=== PATIENT | female | born 1955 | race Caucasian/White ===

== ENCOUNTER 2016-09-28 15:47 | Emergency (ER) | payer MEDICAID ==
[~2016-09-28] VITALS: Ht 165.1 cm; Wt 122.5 kg
[2016-09-28 15:53] VITALS: BP 181/92; PULSE 62; RESP 16; TEMP 97.5; O2SAT 95
--- NOTE | 2016-09-28 17:29 | PD ---
HPI Chief Complaint: GI Complaint Time Seen by Provider: 17:28 Travel History International Travel<30 days: No Contact w/Intl Traveler<30days: No Traveled to known affect area: No History of Present Illness HPI 61-year-old female with a history of hypertension and atrial fibrillation presents to the emergency department for evaluation of diarrhea and abdominal pain for 3 days. Patient states that she drove to [place] from [place] to bring down her nephew's dog. States that the night that she got here she began to have diarrhea and lower abdominal cramping. States that she has continued to have multiple episodes of nonbloody diarrhea over the past 2 days as well as continued abdominal cramping. States that today she also had some weakness. Denies any fever, chills, nausea, vomiting, cough or cold symptoms, chest pain, shortness of breath, lightheadedness or dizziness. Prior abdominal surgeries include cholecystectomy and total hysterectomy. No other complaints. PFSH Past Medical History Cardiovascular Problems: Yes (STENT ) Social History Alcohol Use: No Tobacco Use: No Allergies-Medications (Allergen,Severity, Reaction): Coded Allergies: Bactrim (Verified Allergy, Severe, Dizziness, 09/28/16) Codeine (Verified Allergy, Severe, Hives, 09/28/16) Reported Meds & Prescriptions Reported Meds & Active Scripts Active Lortab (Hydrocodone-Acetaminophen) 5-325 Mg Tab 1 Tab PO Q6H PRN Reported Prilosec (Omeprazole) 20 Mg Cap 20 Mg PO DAILY Aspirin 81 Mg Tabdr 81 Mg PO DAILY Metoprolol Tartrate 25 Mg Tab 25 Mg PO BID Propafenone (Propafenone HCl) 150 Mg Tab 150 Mg PO DAILY Levothyroxine (Levothyroxine Sodium) 125 Mcg Tab 125 Mcg PO DAILY Review of Systems Except as stated in HPI: all other systems reviewed are Neg Physical Exam Narrative GENERAL: Well-nourished and well-developed pleasant female patient in no acute distress. SKIN: Warm and dry. HEAD: Normocephalic and atraumatic. EYES: No injection, drainage, or hyphema noted. PERRLA. EOMI. ENT: No nasal drainage noted. Oropharynx is clear. NECK: Supple and the trachea is midline. CARDIOVASCULAR: Regular rate and rhythm. RESPIRATORY: Breath sounds are equal bilaterally with no accessory muscle use, wheezing, rhonchi, or crackles. GASTROINTESTINAL: Mild left lower quadrant tenderness to palpation. No rebound tenderness or guarding. Abdomen is soft and nondistended. MUSCULOSKELETAL: No obvious deformities, swelling, cyanosis, or ecchymosis is present throughout the upper and lower extremities. Patient has full range of motion without any signs of neurovascular compromise. BACK: Negative CVA tenderness. NEUROLOGICAL: Awake, alert, and oriented. Normal speech and gait. Cranial nerves are grossly intact. Data Data Last Documented VS Vital Signs Date Time Temp Pulse Resp B/P Pulse Ox O2 Delivery O2 Flow Rate FiO2 09/28/16 15:53 97.5 62 16 181/92 95 Room Air Orders Complete Blood Count With Diff (09/28/16 16:45) Comprehensive Metabolic Panel (09/28/16 16:45) Urinalysis - C+S If Indicated (09/28/16 16:45) Lipase (09/28/16 16:45) Ct Abd/Pel W/O Iv Contrast (09/28/16 17:28) Dicyclomine Inj (Bentyl Inj) (09/28/16 17:30) Enteric Path (Stool) (09/28/16 17:55) C Diff Toxin Pcr (09/28/16 18:54) Acetamin-Hydrocod 325-5 Mg ([place] 5-325 (09/28/16 19:00) Labs Laboratory Tests Test 09/28/16 09/28/16 17:15 17:55 Urine Color DARK-YELLOW Urine Turbidity HAZY Urine pH 6.0 Urine Specific [place] 1.032 Urine Protein 100 mg/dL Urine Glucose (UA) NEG mg/dL Urine Ketones NEG mg/dL Urine Occult Blood NEG Urine Nitrite NEG Urine Bilirubin NEG Urine Urobilinogen 2.0 MG/DL Urine Leukocyte Esterase NEG Urine RBC 16 /hpf Urine WBC 2 /hpf Urine Squamous Epithelial 22 /hpf Cells Urine Mucus MANY /lpf Microscopic Urinalysis Comment CULT NOT INDICATED White Blood Count 12.2 TH/MM3 Red Blood Count 5.01 MIL/MM3 Hemoglobin 13.8 GM/DL Hematocrit 42.4 % Mean Corpuscular Volume 84.6 FL Mean Corpuscular Hemoglobin 27.6 PG Mean Corpuscular Hemoglobin 32.6 % Concent Red Cell Distribution Width 14.4 % Platelet Count 217 TH/MM3 Mean Platelet Volume 8.3 FL Neutrophils (%) (Auto) 67.0 % Lymphocytes (%) (Auto) 22.4 % Monocytes (%) (Auto) 7.3 % Eosinophils (%) (Auto) 2.1 % Basophils (%) (Auto) 1.2 % Neutrophils # (Auto) 8.2 TH/MM3 Lymphocytes # (Auto) 2.7 TH/MM3 Monocytes # (Auto) 0.9 TH/MM3 Eosinophils # (Auto) 0.3 TH/MM3 Basophils # (Auto) 0.1 TH/MM3 CBC Comment DIFF FINAL Differential Comment Sodium Level 137 MEQ/L Potassium Level 4.3 MEQ/L Chloride Level 104 MEQ/L Carbon Dioxide Level 28.5 MEQ/L Anion Gap 5 MEQ/L Blood Urea Nitrogen 13 MG/DL Creatinine 0.84 MG/DL Estimat Glomerular Filtration 69 ML/MIN Rate Random Glucose 93 MG/DL Calcium Level 8.9 MG/DL Total Bilirubin 0.4 MG/DL Aspartate Amino Transf 36 U/L (AST/SGOT) Alanine Aminotransferase 51 U/L (ALT/SGPT) Alkaline Phosphatase 75 U/L Total Protein 8.1 GM/DL Albumin 3.8 GM/DL Lipase 135 U/L MDM Medical Decision Making Medical Screen Exam Complete: Yes Emergency Medical Condition: Yes Differential Diagnosis Colitis versus gastroenteritis versus viral illness versus UTI versus electrolyte abnormality Narrative Course 61-year-old female presents to the emergency department for evaluation of diarrhea and lower abdominal pain. Patient is afebrile, vital signs are stable. She does have some mild left lower quadrant tenderness to palpation. Labs have been drawn and are sent. CT of the abdomen and pelvis without IV contrast has been ordered and is pending. Patient is given Bentyl 10 mg IM. CBC shows a slightly elevated white blood cell count of 12.2, otherwise unremarkable. CMP is unremarkable. Lipase is normal. Urinalysis shows 100 protein, 16 red blood cells and many mucus. No sign of urinary tract infection. CT of the abdomen and pelvis without IV contrast is unremarkable for any acute abnormalities. Stool culture and C. difficile toxin have been ordered and are pending. Patient reports that Bentyl did not improve her symptoms. We'll give her Lortab 5-325 mg orally for her pain. Otherwise patient has remained stable while here in the emergency department. Discussed results with the patient. This is likely abdominal pain of viral etiology however the stool culture is pending. Discussed supportive care and when to return to the emergency department. Advised her that we will call if there is any abnormality of her stool sample. Patient will be discharged with a prescription for Lortab. Advised to follow-up with her PCP. Patient verbalizes understanding and agreement with treatment plan. I discussed the case with my attending physician Dr. Beard who is aware of the patients history, physical examination findings, and treatment plan. Diagnosis Primary Impression: Abdominal pain Qualified Code: R10.30 - Lower abdominal pain Additional Impression: Diarrhea Qualified Code: A09 - Diarrhea of infectious origin Referrals: Primary Care Physician Patient Instructions: Abdominal Pain (ED), Acute Diarrhea (ED), General Instructions Additional Instructions: Drink plenty of fluids. Take medication as prescribed with food and a full glass of water. Do not take Lortab with alcohol or while driving. Follow-up with your Primary Care Physician. Return to the ED for any acute worsening of symptoms. Med/Other Pt SpecificInfo: Prescription(s) given Scripts Hydrocodone-Acetaminophen (Lortab)5-325 Mg Tab1 Tab PO Q6H PRN (PAIN) #15 TAB Ref 0 Prov:Yves Beard MD 09/28/16 Disposition: 01 DISCHARGE HOME Condition: Stable Chandni Parker Sep 28, 2016 17:29
[2016-09-28] MEDS ORDERED: DICYCLOMINE HCL 20 MG/2 ML VIAL IM ONE (17:30)
[2016-09-28] MEDS ORDERED: LEVO125T4 PO (17:33)
[2016-09-28] MEDS ORDERED: METO25TA3 PO (17:33)
[2016-09-28] MEDS ORDERED: ASPI1TAB69 PO (17:33)
[2016-09-28] MEDS ORDERED: PROP150T PO (17:33)
[2016-09-28] MEDS ORDERED: PRIL20CA9 PO (17:33)
[2016-09-28 18:11] LABS: AUTOMATED NEUTROPHIL # 8.2 TH/MM3 (1.8-7.7); BASOPHIL # 0.1 TH/MM3 (0-0.2); BASOPHIL % 1.2 % (0.0-2.0); EOSINOPHIL # 0.3 TH/MM3 (0-0.4); EOSINOPHIL % 2.1 % (0.0-4.0); HEMATOCRIT 42.4 % (35.0-46.0); HEMO FLAGS DIFF FINAL; LYMPH % 22.4 % (9.0-44.0); LYMPHOCYTE # 2.7 TH/MM3 (1.0-4.8); MEAN CELL VOLUME 84.6 FL (80.0-100.0); MEAN CORPUSCULAR HEMOGLOBIN 27.6 PG (27.0-34.0); MEAN CORPUSCULAR HGB CONC 32.6 % (32.0-36.0); MONO % 7.3 % (0.0-8.0); PLATELET COUNT 217 TH/MM3 (150-450); RED BLOOD COUNT 5.01 MIL/MM3 (4.00-5.30); RED CELL DISTRIBUTION WIDTH 14.4 % (11.6-17.2); WHITE BLOOD COUNT 12.2 TH/MM3 (4.0-11.0)
--- NOTE | 2016-09-28 18:17 | RADRPT ---
EXAM DATE/TIME: 09/28/2016 17:57 [facility] COMPARISON: No previous studies available for comparison. INDICATIONS : Diarrhea and abdominal cramping. ORAL CONTRAST: No oral contrast ingested. RADIATION DOSE: 25.49 CTDIvol (mGy) MEDICAL HISTORY : Hypertension. Gastroesophageal reflux disease. SURGICAL HISTORY : Cholecystectomy. Hysterectomy. ENCOUNTER: Initial ACUITY: 3 days PAIN SCALE: 6/10 LOCATION: Bilateral lower quadrant TECHNIQUE: Volumetric scanning of the abdomen and pelvis was performed. Using automated exposure control and ad justment of the mA and/or kV according to patient size, radiation dose was kept as low as reasonably achievable to obtain optimal diagnostic quality images. FINDINGS: There is coronary artery calcification. No pleural or pericardial effusions are seen. Liver, spleen, pancreas, bilateral adrenal glands, bilateral kidneys are unremarkable. Urinary bladder is unremarkab le. No evidence for bowel obstruction. Sigmoid diverticuli in descending colonic diverticuli are note d without evidence of diverticulitis. Appendix is normal. No adenopathy or aneurysm. Bladder unremark able. Hysterectomy and cholecystectomy. No inflammatory changes. Lung bases are clear. There are dege nerative changes of the spine noted. CONCLUSION: No acute disease. Kameron Tamayo MD on September 28, 2016 at 18:14 Board Certified Radiologist. This report was verified electronically.
[2016-09-28 18:19] LABS: BLOOD, URINE NEG (NEG); COMMENT (UR) CULT NOT INDICATED; CULTURE IF INDICATED CULT NOT INDICATED; GLUCOSE,URINE NEG (NEG); KETONE, URINE NEG (NEG); MUCUS URINE MANY /lpf (OCC); NITRITE,URINE NEG (NEG); SQUAMOUS EPITHELIAL CELL URINE 22 /hpf (0-5); URINE COLOR DARK-YELLOW (YELLW/STRAW)
[2016-09-28 18:38] LABS: ALT (GPT) 51 U/L (10-53); ANION GAP 5 MEQ/L (5-15); AST (GOT) 36 U/L (15-37); BICARBONATE 28.5 MEQ/L (21.0-32.0); BLOOD UREA NITROGEN 13 MG/DL (7-18); CHLORIDE 104 MEQ/L (98-107); GLOMERULAR FILTRATION RATE 69 ML/MIN (>89); POTASSIUM 4.3 MEQ/L (3.5-5.1); SODIUM (NA) 137 MEQ/L (136-145)
[2016-09-28 18:40] LABS: ALKALINE PHOSPHATASE 75 U/L (45-117); TOTAL BILIRUBIN ADULT 0.4 MG/DL (0.2-1.0)
[2016-09-28] MEDS ORDERED: ACETAMINOPHEN/HYDROcodone 325 MG/5 MG TAB PO ONE (19:00)
[2016-09-28] MEDS ORDERED: HYDR-3533 PO (19:02)
[2016-09-28 19:45] LABS: C. DIFF EPI 027 PRESUMPTIVE NEGATIVE (NEGATIVE); C. DIFF TOXIN PCR NEGATIVE (NEGATIVE)
== END 2016-09-28 21:07 | disposition home or self-care (01) ==
LOC: NETRI 15:47
DX: A09 Infectious gastroenteritis and colitis, unspecified (principal)
CPT/HCPCS: 74176; 80053; 81001; 83690; 85025; 87493; 87506; 96372; 99284; J0500